=== PATIENT | male | born 1980 | race Caucasian/White ===

== ENCOUNTER 2018-06-19 19:23 | Emergency (ER) | payer OTHER ==
[2018-06-19] MEDS: IBUPROFEN 800 MG TAB PO (21:54)
[2018-06-19 23:38] LABS: CHLAMYDIA DNA AMPLIFICATION NEGATIVE (NEGATIVE); GC DNA AMPLIFICATION NEGATIVE (NEGATIVE)
== END 2018-06-19 22:16 | disposition home or self-care (01) ==
LOC: M ED 19:23
DX: N45.2 Orchitis (principal); Z88.5 Allergy status to narcotic agent
CPT/HCPCS: 76870